=== PATIENT | female | born 1965 | race Caucasian/White ===

== ENCOUNTER → 2017-01-05 | Outpatient (CLI) | payer BC ==
--- NOTE | 2017-01-05 12:25 | DI ---
US ABDOMEN LIMITED,01/05/2017 7:53 AM: Clinical History: Elevated liver enzymes. Previous Exam: None at this facility. Findings: Multiple grayscale and color Doppler sonographic images are obtained through the abdomen, and demonst rate a normal-appearing liver. The pancreas is normal throughout its visualized portions. The gallbladder is also normal with the gallbladder wall measuring 2 mm. A negative sonographic Missael y's sign was obtained. The common bile duct measures 4 mm. The right kidney measures 9.7 cm in length without hydronephrosis nor nephrolithiasis. Visualized portions of the aorta are normal. Impression: Normal right upper quadrant ultrasound.
== END ==
LOC: US 07:48
PROVIDERS: ATTEND Family Medicine
DX: R74.8 Abnormal levels of other serum enzymes (principal)
CPT/HCPCS: 76705